=== PATIENT | female | born 1985 | race Caucasian/White ===

== ENCOUNTER 2016-06-23 12:47 | Inpatient (IN) | payer OTHER ==
[2016-06-25] MEDS ORDERED: LACTATED RINGER'S 1000 ML IV ONE (06:00)
[2016-06-25] MEDS ORDERED: ceFAZolin 2 GM PREMIX 50 ML IV SCH (06:00)
[2016-06-25] MEDS ORDERED: CITRIC ACID-SODIUM CITRATE LIQ 30 ML UDC PO SCH (06:00)
[2016-06-25] MEDS ORDERED: LACTATED RINGER'S 1000 ML IV SCH (06:00)
--- NOTE | 2016-06-25 08:14 | HHI.DCPOC ---
Discharge Care Plan Report Symptoms to Your Doctor -Temperate above 100.5 degrees -Redness, of incision or excessive or foul smelling drainage -Unusual pain or calf pain -Increased vaginal bleeding -Painful or difficulty urinating -Feelings of extreme sadness or anxiety after 2 weeks Goals to Promote Your Health * To prevent worsening of your condition and complications * To maintain your health at the optimal level Directions to Meet Your Goals Take your medications as prescribed Follow your dietary instruction Follow activity as directed Ensure plenty of rest for recovery Drink fluids for hydration Keep your appointments as scheduled Take your immunizations and boosters as scheduled If your symptoms worsen call your PCP, if no PCP go to Urgent Care Center or Emergency Room Smoking is Dangerous to Your Health. Avoid second hand smoke Call the 24-hour crisis hotline for domestic abuse at Ashly Eduardo MD Jun 25, 2016 08:14
== END 2016-06-25 08:04 | disposition home or self-care (01) | DRG 951 ==
LOC: H2EB 06-25 05:42 → UNDODISIN 06-25 08:04
PROVIDERS: ADMIT Obstetrics & Gynecology; ATTEND Obstetrics & Gynecology
DX: Z34.90 Encounter for supervision of normal pregnancy, unspecified, unspecified trimester (principal); Z53.8 Procedure and treatment not carried out for other reasons

== ENCOUNTER 2016-07-07 11:12 | Inpatient (IN) | payer OTHER ==
[2016-07-07] VITALS (71 sets, daily range): BP systolic 97–148; BP diastolic 57–97; PULSE 66–157; RESP 16–18; TEMP 97.5–98.6
--- NOTE | 2016-07-07 11:35 | HHI.DCPOC ---
Discharge Care Plan Diagnosis: (1) S/P primary low transverse Your Health Problems Are: delivery Report Symptoms to Your Doctor -Temperate above 100.5 degrees -Redness, of incision or excessive or foul smelling drainage -Unusual pain or calf pain -Increased vaginal bleeding -Painful or difficulty urinating -Feelings of extreme sadness or anxiety after 2 weeks Goals to Promote Your Health * To prevent worsening of your condition and complications * To maintain your health at the optimal level Directions to Meet Your Goals Take your medications as prescribed Follow your dietary instruction Follow activity as directed Ensure plenty of rest for recovery Drink fluids for hydration Keep your appointments as scheduled Take your immunizations and boosters as scheduled If your symptoms worsen call your PCP, if no PCP go to Urgent Care Center or Emergency Room Smoking is Dangerous to Your Health. Avoid second hand smoke Call the 24-hour crisis hotline for domestic abuse at Loly Dixon MD Jul 07, 2016 11:35
[2016-07-07 12:19] LABS: BACTERIA, URINE OCC /hpf; BLOOD, URINE MOD (NEG); COMMENT (UR) CULT NOT INDICATED; CULTURE IF INDICATED CULT NOT INDICATED; GLUCOSE,URINE NEG (NEG); KETONE, URINE NEG (NEG); MUCUS URINE FEW /lpf (OCC); NITRITE,URINE NEG (NEG); PH, URINE 5.5 (5.0-8.5); SQUAMOUS EPITHELIAL CELL URINE 11 /hpf (0-5); URINE COLOR YELLOW (YELLW/STRAW)
[2016-07-07] MEDS ORDERED: LACTATED RINGER'S 1000 ML INJ 1,000 ML IV PRN (12:52)
[2016-07-07] MEDS ORDERED: MINERAL OIL 10 ML VIAL TOPICAL PRN (13:00)
[2016-07-07] MEDS ORDERED: OXYTOCIN 30 UNITS-500ML PREMIX 500 ML IV ONE (13:00)
[2016-07-07] MEDS ORDERED: CITRIC ACID-SODIUM CITRATE LIQ 30 ML UDC PO SCH (13:00)
[2016-07-07] MEDS ORDERED: SODIUM CHLORID 0.9% 500 ML INJ 500 ML IV PRN (13:00)
[2016-07-07] MEDS ORDERED: OXYTOCIN 30 UNITS-500ML PREMIX 500 ML IV SCH (13:00)
[2016-07-07] MEDS ORDERED: LIDOCAINE HCL 1% 50 ML VIAL I-DERMAL PRN (13:00)
[2016-07-07] MEDS ORDERED: LIDOCAINE HCL 1% 50 ML VIAL INFIL PRN (13:00)
[2016-07-07 13:03] LABS: AUTOMATED NEUTROPHIL # 13.3 TH/MM3 (1.8-7.7); BASOPHIL % 0.3 % (0.0-2.0); EOSINOPHIL # 0.1 TH/MM3 (0-0.4); EOSINOPHIL % 0.5 % (0.0-4.0); HEMATOCRIT 37.8 % (35.0-46.0); HEMO FLAGS DIFF FINAL; LYMPH % 9.1 % (9.0-44.0); LYMPHOCYTE # 1.4 TH/MM3 (1.0-4.8); MEAN CELL VOLUME 94.1 FL (80.0-100.0); MEAN CORPUSCULAR HEMOGLOBIN 33.6 PG (27.0-34.0); MEAN CORPUSCULAR HGB CONC 35.6 % (32.0-36.0); MONO % 5.5 % (0.0-8.0); NEUT % 84.6 % (16.0-70.0); PLATELET COUNT 182 TH/MM3 (150-450); RED BLOOD COUNT 4.01 MIL/MM3 (4.00-5.30); RED CELL DISTRIBUTION WIDTH 12.9 % (11.6-17.2); WHITE BLOOD COUNT 15.7 TH/MM3 (4.0-11.0)
[2016-07-07] MEDS ORDERED: SODIUM CHLOR 0.9% 1000 ML INJ 1,000 ML IV PRN (13:12)
[2016-07-07] MEDS ORDERED: fentaNYL 2MCG-BUPIV 0.125% INJ 100 ML ONE (13:20)
[2016-07-07 13:26] LABS: ALT (GPT) 18 U/L (10-53); ANION GAP 10 MEQ/L (5-15); AST (GOT) 18 U/L (15-37); BICARBONATE 22.8 MEQ/L (21.0-32.0); BLOOD UREA NITROGEN 8 MG/DL (7-18); CHLORIDE 101 MEQ/L (98-107); GLOMERULAR FILTRATION RATE 103 ML/MIN (>89); POTASSIUM 3.9 MEQ/L (3.5-5.1); SODIUM (NA) 134 MEQ/L (136-145)
[2016-07-07 13:28] LABS: ALKALINE PHOSPHATASE 120 U/L (45-117); TOTAL BILIRUBIN ADULT 0.4 MG/DL (0.2-1.0)
--- NOTE | 2016-07-07 13:31 | PD.LABORPN ---
Subjective Subjective Arrived uncomffortable with UCs every 2-3 minutes bloody show post stripping no DELEON N V Objective Objective strip reactive /-1 arom clear EFW 7 1/2 pelvis clinically adequate Assessment/Plan Assessment and Plan 41 week primip in active labor pitocin if needed, epidural anticipate Ashly Eduardo MD Jul 07, 2016 13:31
[2016-07-07] MEDS: LACTATED RINGER'S 1000 ML INJ 1,000 ML IV SCH ×2 (15:11→22:11)
[2016-07-07] MEDS ORDERED: DO NOT ADMINISTER ANTICOAGULANTS XX PRN (16:00)
[2016-07-07] MEDS ORDERED: ePHEDrine/NS 50 MG/5 ML SYR IV PRN (16:00)
[2016-07-07] MEDS ORDERED: fentaNYL 2MCG-BUPIV 0.125% INJ 100 ML EPIDURAL SCH (16:00)
[2016-07-07] MEDS ORDERED: NO SYSTEM NARCOTICS XX PRN (16:00)
--- NOTE | 2016-07-07 20:34 | PD.OB.DELI ---
Anesthesia: Epidural Episiotomy: None Vaginal Delivery: Normal Presentation: Occiput anterior Nuchal Cord: x1 Delayed cord clamping (45 sec): Yes : Female One Minute : 9 Five Minute : 9 Weight: 7 Infant Care: Suctioned, Spontaneous crying, Responded to stimulation, Blow-by O2 delivered Placenta: Spontaneous delivery, 3 vessel cord Laceration: 1 deg Repair: Chromic running Ashly Eduardo MD Jul 07, 2016 20:34
[2016-07-07] MEDS ORDERED: BENZOCAINE 20% TOPICAL SPRAY 60 ML CAN TOPICAL PRN (20:45)
[2016-07-07] MEDS ORDERED: ACETAMINOPHEN 325 MG TAB PO PRN (20:45)
[2016-07-07] MEDS ORDERED: SODIUM CHLORIDE 0.9% FLUSH 5 ML FLUSH IV PRN (20:45)
[2016-07-07] MEDS ORDERED: ALUMINUM/MAGNESIUM/SIMETH 30 ML CUP PO PRN (20:45)
[2016-07-07] MEDS ORDERED: ONDANSETRON ODT 4 MG TAB PO PRN (20:45)
[2016-07-07] MEDS ORDERED: ZOLPIDEM TARTRATE 5 MG TAB PO PRN (21:00)
[2016-07-07] MEDS ORDERED: MEASLES, MUMPS, RUBELLA VACCINE 0.5 ML VIAL SQ ONE (21:00)
[2016-07-07] MEDS ORDERED: SODIUM CHLORIDE 0.9% FLUSH 5 ML FLUSH IV SCH (21:00)
[2016-07-07] MEDS ORDERED: DIPHTH/TETANUS/ACEL PERTUSSIS (BOOSTER) 0.5 ML VIAL/PFS IM ONE (21:00)
[2016-07-08 00:10] VITALS: BP 123/75; PULSE 87; RESP 18; TEMP 98.5; O2SAT 99
[2016-07-08] MEDS: WITCH HAZEL 50%/GLYCERIN 12.5% 40 PAD JAR TOPICAL PRN ×2 (00:14→14:30)
[2016-07-08] MEDS: DOCUSATE SODIUM 50 MG/SENNA 8.6 MG TAB PO PRN ×2 (00:15→11:21)
[2016-07-08] MEDS: IBUPROFEN 600 MG TAB PO PRN ×3 (05:10→17:07)
[2016-07-08 08:25] VITALS: BP 127/67; PULSE 76; RESP 18; TEMP 97.6
--- NOTE | 2016-07-08 08:34 | HHI.OB ---
Subjective Post Day: 1 Remarks doing well, some perineal soreness nl lochia Objective Vitals/I&O Vital Signs Date Time Temp Pulse Resp B/P Pulse Ox O2 Delivery O2 Flow Rate FiO2 07/08/16 00:10 98.5 87 18 123/75 99 07/07/16 23:00 98.1 16 07/07/16 22:46 86 133/64 07/07/16 22:12 18 07/07/16 22:00 95 18 125/67 07/07/16 21:45 93 126/69 07/07/16 21:35 16 07/07/16 21:30 16 07/07/16 21:30 98 146/83 07/07/16 21:16 97 105/78 07/07/16 21:15 16 07/07/16 21:01 95 130/74 07/07/16 21:00 18 07/07/16 20:45 98.1 07/07/16 20:45 18 07/07/16 20:45 89 139/80 07/07/16 20:44 90 141/80 07/07/16 19:45 18 07/07/16 19:30 78 136/83 07/07/16 19:15 18 07/07/16 19:00 79 133/79 07/07/16 18:43 18 07/07/16 18:31 69 118/64 07/07/16 18:05 72 116/61 07/07/16 18:04 16 07/07/16 17:30 70 110/88 07/07/16 17:24 98.6 18 07/07/16 17:15 18 07/07/16 17:01 78 97/78 07/07/16 16:31 66 137/81 07/07/16 16:14 77 18 124/76 07/07/16 16:10 71 07/07/16 16:05 76 07/07/16 16:01 70 118/61 07/07/16 16:00 77 07/07/16 15:42 67 141/78 07/07/16 15:40 72 07/07/16 15:39 18 07/07/16 15:35 70 07/07/16 15:31 76 139/68 07/07/16 15:30 72 07/07/16 15:25 70 07/07/16 15:20 70 2/6/17 15:15 97.5 18 07/07/16 15:15 69 07/07/16 15:10 72 07/07/16 15:07 69 130/71 07/07/16 15:05 72 07/07/16 15:01 81 126/76 07/07/16 15:00 75 07/07/16 14:45 18 07/07/16 14:41 67 137/72 07/07/16 14:40 68 07/07/16 14:35 77 07/07/16 14:35 86 134/84 07/07/16 14:32 82 117/70 07/07/16 14:30 76 07/07/16 14:26 77 120/93 07/07/16 14:25 77 07/07/16 14:21 101 110/60 07/07/16 14:20 74 07/07/16 14:17 71 114/57 07/07/16 14:15 76 07/07/16 14:11 72 129/70 07/07/16 14:10 74 07/07/16 14:06 74 135/75 07/07/16 14:05 76 07/07/16 14:01 85 143/71 07/07/16 14:00 81 07/07/16 13:55 148/76 07/07/16 13:55 81 07/07/16 13:51 87 129/88 07/07/16 13:50 80 07/07/16 13:45 75 120/87 07/07/16 13:41 157 113/97 07/07/16 13:40 80 07/07/16 13:35 88 07/07/16 13:30 86 129/89 Objective Remarks GENERAL: Well-nourished, well-developed patient. CARDIOVASCULAR: Regular rate and rhythm without murmurs, gallops, or rubs. RESPIRATORY: Breath sounds equal bilaterally. No accessory muscle use. ABDOMEN/GI: Abdomen soft, non-tender. Fundus: Firm, non-tender at umbilicus. GENITOURINARY: Light to moderate bleeding. EXTREMITIES: No cyanosis or edema, non-tender, without signs of DVT. Medications and IVs Current Medications Medications (Trade) Dose Ordered Sig/Mary Kay Route Start Time Stop Time Status Last Admin Lactated Ringer's 1,000 ml @ 125 mls/hr Q8H IV 07/07/16 12:52 07/07/16 22:11 Lactated Ringer's 1,000 ml @ 3,000 mls/hr Q20M PRN IV 07/07/16 12:52 (NS 1000 ml Inj) 1,000 ml @ 100 mls/hr Q10H PRN IV 07/07/16 13:12 (fentaNYL INJ) 50 mcg Q1H PRN IV PUSH 07/07/16 13:00 (fentaNYL INJ) 100 mcg Q1H PRN IV PUSH 07/07/16 13:00 Mineral Oil 10 ml 10 ml UNSCH PRN TOPICAL 07/07/16 13:00 (Pitocin 30 Units-NS 500 ml Premix) 500 ml @ 0 mls/hr TITRATE IV 07/07/16 13:00 07/07/16 15:10 Miscellaneous Information No systemic narcotics to be given except... UNSCH PRN XX 07/07/16 16:00 07/08/16 15:59 Miscellaneous Information DO NOT ADMINISTER ANY ANTICOAGUL... UNSCH PRN XX 07/07/16 16:00 07/08/16 15:59 (fentaNYL 2MCG-BUPIV 0.125% INJ) 100 ml @ 0 mls/hr TITRATE EPIDURAL 07/07/16 16:00 (ePHEDrine/NS 50 MG/5 ML SYR) 10 mg UNSCH PRN IV 07/07/16 16:00 07/08/16 15:59 (NS Flush) 2 ml BID IV 07/07/16 21:00 07/07/16 22:11 (NS Flush) 2 ml UNSCH PRN IV 07/07/16 20:45 (Tylenol) 650 mg Q4H PRN PO 07/07/16 20:45 (Motrin) 600 mg Q6H PRN PO 07/07/16 20:45 07/08/16 05:10 (Americaine 20% Top Spr) 1 spray Q4H PRN TOPICAL 07/07/16 20:45 07/08/16 00:15 (Tucks Pads) 1 applic QID PRN TOPICAL 07/07/16 20:45 07/08/16 00:14 (Ruchi-Colace) 2 tab Q12H PRN PO 07/07/16 20:45 07/08/16 00:15 (Ambien) 5 mg HS PRN PO 07/07/16 21:00 (Mag-Al Plus Susp Liq) 15 ml Q8H PRN PO 07/07/16 20:45 (Zofran Odt) 4 mg Q6H PRN PO 07/07/16 20:45 Assessment/Plan Problem List: (1) (spontaneous vaginal delivery) Assessment and Plan PPD 1 cont routine care Discharge Planning ppd2 Danii Pedroza MD Jul 08, 2016 08:34
[2016-07-08 19:40] VITALS: BP 127/77; PULSE 63; RESP 18; TEMP 98.6
[2016-07-09] MEDS: IBUPROFEN 600 MG TAB PO PRN ×2 (00:29→08:37)
--- NOTE | 2016-07-09 07:55 | HHI.OB ---
Subjective Post Day: 2 Remarks doing well nursing well ready for discharge Objective Vitals/I&O Vital Signs Date Time Temp Pulse Resp B/P Pulse Ox O2 Delivery O2 Flow Rate FiO2 07/08/16 19:40 98.6 07/08/16 19:40 63 18 127/77 07/08/16 08:25 97.6 07/08/16 08:25 76 18 127/67 Objective Remarks GENERAL: Well-nourished, well-developed patient. CARDIOVASCULAR: Regular rate and rhythm without murmurs, gallops, or rubs. RESPIRATORY: Breath sounds equal bilaterally. No accessory muscle use. ABDOMEN/GI: Abdomen soft, non-tender. Fundus: Firm, non-tender at umbilicus. GENITOURINARY: Light to moderate bleeding. EXTREMITIES: No cyanosis or edema, non-tender, without signs of DVT. Medications and IVs Current Medications Medications (Trade) Dose Ordered Sig/Mary Kay Route Start Time Stop Time Status Last Admin Lactated Ringer's 1,000 ml @ 125 mls/hr Q8H IV 07/07/16 12:52 07/07/16 22:11 Lactated Ringer's 1,000 ml @ 3,000 mls/hr Q20M PRN IV 07/07/16 12:52 (NS 1000 ml Inj) 1,000 ml @ 100 mls/hr Q10H PRN IV 07/07/16 13:12 (fentaNYL INJ) 50 mcg Q1H PRN IV PUSH 07/07/16 13:00 (fentaNYL INJ) 100 mcg Q1H PRN IV PUSH 07/07/16 13:00 Mineral Oil 10 ml 10 ml UNSCH PRN TOPICAL 07/07/16 13:00 Oxytocin 500 ml @ 0 mls/hr TITRATE IV 07/07/16 13:00 07/07/16 15:10 (fentaNYL 2MCG-BUPIV 0.125% INJ) 100 ml @ 0 mls/hr TITRATE EPIDURAL 07/07/16 16:00 (NS Flush) 2 ml BID IV 07/07/16 21:00 07/07/16 22:11 (NS Flush) 2 ml UNSCH PRN IV 07/07/16 20:45 (Tylenol) 650 mg Q4H PRN PO 07/07/16 20:45 (Motrin) 600 mg Q6H PRN PO 07/07/16 20:45 07/09/16 00:29 (Americaine 20% Top Spr) 1 spray Q4H PRN TOPICAL 07/07/16 20:45 07/08/16 00:15 (Tucks Pads) 1 applic QID PRN TOPICAL 07/07/16 20:45 07/08/16 14:30 (Ruchi-Colace) 2 tab Q12H PRN PO 07/07/16 20:45 07/08/16 11:21 (Ambien) 5 mg HS PRN PO 07/07/16 21:00 (Mag-Al Plus Susp Liq) 15 ml Q8H PRN PO 07/07/16 20:45 (Zofran Odt) 4 mg Q6H PRN PO 07/07/16 20:45 Assessment/Plan Problem List: (1) (spontaneous vaginal delivery) Assessment and Plan PPD 2 home today follow up in 6 weeks Discharge Planning ppd2 Ashly Eduardo MD Jul 09, 2016 07:55
[2016-07-09] MEDS ORDERED: IBUP-232 PO (07:56)
--- NOTE | 2016-07-09 07:57 | HHI.DCPOC ---
Discharge Care Plan Report Symptoms to Your Doctor -Temperate above 100.5 degrees -Redness, of incision or excessive or foul smelling drainage -Unusual pain or calf pain -Increased vaginal bleeding -Painful or difficulty urinating -Feelings of extreme sadness or anxiety after 2 weeks Goals to Promote Your Health * To prevent worsening of your condition and complications * To maintain your health at the optimal level Directions to Meet Your Goals Take your medications as prescribed Follow your dietary instruction Follow activity as directed Ensure plenty of rest for recovery Drink fluids for hydration Keep your appointments as scheduled Take your immunizations and boosters as scheduled If your symptoms worsen call your PCP, if no PCP go to Urgent Care Center or Emergency Room Smoking is Dangerous to Your Health. Avoid second hand smoke Call the 24-hour crisis hotline for domestic abuse at Ashly Eduardo MD Jul 09, 2016 07:56
[2016-07-09 08:35] VITALS: BP 135/78; PULSE 64; RESP 18; TEMP 97.4
[2016-07-09] MEDS: DOCUSATE SODIUM 50 MG/SENNA 8.6 MG TAB PO PRN (08:37)
== END 2016-07-09 12:24 | disposition home or self-care (01) | DRG 775 ==
LOC: EDSTATUS 11:17 → H2EB 11:18 → H1EA 23:18
PROVIDERS: ADMIT Obstetrics & Gynecology; ATTEND Obstetrics & Gynecology
PROC: 10E0XZZ Delivery of Products of Conception, External Approach (ICD-10-PCS; principal; 2016-07-07)
PROC: 0HQ9XZZ Repair Perineum Skin, External Approach (ICD-10-PCS; 2016-07-07)
PROC: 10907ZC Drainage of Amniotic Fluid, Therapeutic from Products of Conception, Via Natural or Artificial Opening (ICD-10-PCS; 2016-07-07)
PROC: 00HU33Z Insertion of Infusion Device into Spinal Canal, Percutaneous Approach (ICD-10-PCS; 2016-07-07)
PROC: 3E0R3CZ (ICD-10-PCS; 2016-07-07)
DX: O70.0 First degree perineal laceration during delivery (principal); O48.0 Post-term pregnancy; O69.81X0 Labor and delivery complicated by cord around neck, without compression, not applicable or unspecified; Z3A.41 41 weeks gestation of pregnancy; Z37.0 Single live birth
CPT/HCPCS: 59025; 76937; 80053; 81001; 85025; 86900; 86901; J2590; J7120

== ENCOUNTER → 2017-02-18 | Outpatient (CLI) | payer BC ==
[~2017-02-18] MED LIST: IBUP-232 PO
== END ==
LOC: HPND 11:53
PROVIDERS: ATTEND Obstetrics & Gynecology
DX: O28.5 Abnormal chromosomal and genetic finding on antenatal screening of mother (principal)
CPT/HCPCS: 36415; 76811

== ENCOUNTER → 2017-03-18 | Outpatient (CLI) | payer BC | LOC: HPND 12:04 | PROVIDERS: ATTEND Obstetrics & Gynecology | DX: O99.282 Endocrine, nutritional and metabolic diseases complicating pregnancy, second trimester (principal); O28.0 Abnormal hematological finding on antenatal screening of mother | CPT/HCPCS: 76816 ==

== ENCOUNTER 2017-07-02 11:03 | Inpatient (IN) | payer BC ==
[~2017-07-02] VITALS: Ht 157.5 cm; Wt 74.0 kg
[2017-07-02] VITALS (48 sets, daily range): BP systolic 96–146; BP diastolic 47–87; PULSE 61–87; RESP 16–20; TEMP 97.8–98.8
[2017-07-02] MEDS ORDERED: PREN1TAB45 PO (11:43)
[2017-07-02] MEDS ORDERED: SYNT112T PO (11:43)
[2017-07-02] MEDS ORDERED: LACTATED RINGER'S 1000 ML INJ 1,000 ML IV PRN (12:04)
[2017-07-02] MEDS ORDERED: MINERAL OIL 10 ML VIAL TOPICAL PRN (12:15)
[2017-07-02] MEDS ORDERED: SODIUM CHLORID 0.9% 500 ML INJ 500 ML IV PRN (12:15)
[2017-07-02] MEDS ORDERED: CITRIC ACID-SODIUM CITRATE LIQ 30 ML UDC PO SCH (12:15)
[2017-07-02] MEDS ORDERED: OXYTOCIN 30 UNITS-500ML PREMIX 500 ML IV PRN (12:15)
[2017-07-02] MEDS ORDERED: LIDOCAINE HCL 1% 50 ML VIAL I-DERMAL PRN (12:15)
[2017-07-02] MEDS ORDERED: LIDOCAINE HCL 1% 50 ML VIAL INFIL PRN (12:15)
[2017-07-02] MEDS ORDERED: OXYTOCIN 30 UNITS-500ML PREMIX 500 ML IV ONE (12:15)
[2017-07-02] MEDS ORDERED: ONDANSETRON HCL 4 MG/2 ML VIAL IV PUSH PRN (12:15)
--- NOTE | 2017-07-02 12:19 | HHI.HP ---
HPI Chief Complaint PROM at 38 5/7 weeks Date Seen: Jul 02, 2017 Time Seen: 12:13 Travel History International Travel<30 Days: No Contact w/Intl Traveler<30Days: No Known Affected Area: No History of Present Illness HPI 31 yo mwf at 38 5/7 by early dates to office this am with concern of SROM. Not leaking actively. Aggressive exam to see if leaking. Fern + Nitrazine + No gross fluid until she stood and then flooded her clothing. Infant vertex and applied but high. FHT reassuring. no BP issues, No gestational diabetes and no PTL. First half of care in [place]. Remaining care with [facility] Weeks Gestation: 39 Para: 1 : 2 History Past Medical History Medical History: Denies Significant Hx Obstetric History Obstetric History one term infant vaginally. Spontaneously turned on day of scheduled section for breech after failed version one week prior. Past Surgical History Surgical History: No Previous Surgery Family History Family History: Negative Social History Alcohol Use: No Tobacco Use: No Substance Abuse: No Allergies-Medications (Allergen,Severity, Reaction): Coded Allergies: No Known Allergies (Verified Allergy, Unknown, 07/02/17) Home Meds Reported Medications Vit,Calc76/Iron/Folic (Pnv 29-1 Tablet) 29 Mg Iron-1 Mg Tablet, 1 TAB PO DAILY 07/02/17 Levothyroxine (Synthroid) 112 Mcg Tab, 112 MCG PO DAILY for Thyroid, #30 TAB 0 Refills 07/02/17 Discontinued Scripts Ibuprofen (Ibuprofen) 600 Mg Tab, 600 MG PO Q6H Y for CRAMPING, #20 TAB Prov:Ashly Eduardo MD 07/09/16 Review of Systems General / Constitutional: No: Fever, Weight Gain, Chills, Other Physical Exam Narrative GENERAL: Well-nourished, well-developed patient. SKIN: Warm and dry. HEAD: Normocephalic and atraumatic. EYES: No scleral icterus. No injection or drainage. ENT: No nasal drainage noted. Mucous membranes pink. Airway patent. NECK: Supple, trachea midline. No JVD. CARDIOVASCULAR: Regular rate and rhythm without murmurs, gallops, or rubs. RESPIRATORY: Breath sounds equal bilaterally. No accessory muscle use. BREASTS: Bilateral exam showed no masses , no retractions, no nipple discharge. ABDOMEN/GI: Abdomen soft, non-tender, bowel sounds present, no rebound, no guarding term fundus 2+ /50%/-2 anterior and soft pelvis proven to 7 pounds clinically adequate pelvis GBS+ strip category one no contractions yet EXTREMITIES: No cyanosis or edema. BACK: Nontender without obvious deformity. No CVA tenderness. NEUROLOGICAL: Awake and alert. Motor and sensory grossly within normal limits. Five out of 5 muscle strength in all muscle groups. Normal speech. Caprini VTE Risk Assessment Caprini VTE Risk Assessment: No/Low Risk (score <= 1) Caprini Risk Assessment Model Point Value = 1 Point Value = 2 Point Value = 3 Point Value = 5 Age 41-60 Minor surgery BMI > 25 kg/m2 Swollen legs Varicose veins or History of unexplained or recurrent spontaneous Oral contraceptives or hormone replacement Sepsis (< 1 month) Serious lung disease, including pneumonia (< 1 month) Abnormal pulmonary function Acute myocardial infarction Congestive heart failure (< 1 month) History of inflammatory bowel disease Medical patient at bed rest Age 61-74 Arthroscopic surgery Major open surgery (> 45 min) Laparoscopic surgery (> 45 min) Malignancy Confined to bed (> 72 hours) Immobilizing plaster cast Central venous access Age >= 75 History of VTE Family history of VTE Factor V Leiden Prothrombin [id number] Lupus anticoagulant Anticardiolipin antibodies Elevated serum homocysteine Heparin-induced thrombocytopenia Other congenital or acquired thrombophilia Stroke (< 1 month) Elective arthroplasty Hip, pelvis, or leg fracture Acute spinal cord injury (< 1 month) Prophylaxis Regimen Total Risk Factor Score Risk Level Prophylaxis Regimen 0-1 Low Early ambulation 2 Moderate Order ONE of the following: *Sequential Compression Device (SCD) *Heparin 5000 units SQ BID 3-4 Higher Order ONE of the following medications: *Heparin 5000 units SQ TID *Enoxaparin/Lovenox 40 mg SQ daily (WT < 150 kg, CrCl > 30 mL/min) *Enoxaparin/Lovenox 30 mg SQ daily (WT < 150 kg, CrCl > 10-29 mL/min) *Enoxaparin/Lovenox 30 mg SQ BID (WT < 150 kg, CrCl > 30 mL/min) AND/OR *Sequential Compression Device (SCD) 5 or more Highest Order ONE of the following medications: *Heparin 5000 units SQ TID (Preferred with Epidurals) *Enoxaparin/Lovenox 40 mg SQ daily (WT < 150 kg, CrCl > 30 mL/min) *Enoxaparin/Lovenox 30 mg SQ daily (WT < 150 kg, CrCl > 10-29 mL/min) *Enoxaparin/Lovenox 30 mg SQ BID (WT < 150 kg, CrCl > 30 mL/min) AND *Sequential Compression Device (SCD) Data Data Orders Orders Admit To Inpatient (07/02/17 ) Code Status (07/02/17 12:04) Vital Signs (Adult) .Per protocol (07/02/17 12:04) Activity Oob Ad Pratibha (07/02/17 12:04) Heart (07/02/17 12:04) Amnioinfusion (07/02/17 12:04) Urinary Catheter Management .ONCE (07/02/17 12:04) Lactated Ringer's 1000 Ml Inj (Lr 1000 M (07/02/17 12:04) Lactated Ringer's 1000 Ml Inj (Lr 1000 M (07/02/17 12:04) Sodium Chlorid 0.9% 500 Ml Inj (Ns 500 M (07/02/17 12:15) Sodium Chlor 0.9% 1000 Ml Inj (Ns 1000 M (07/02/17 12:24) Lidocaine 1% Inj (50 Ml) (Xylocaine 1% I (07/02/17 12:15) Citric Acid-Sodium Citrate Liq (Bicitra (07/02/17 12:15) Ondansetron Inj (Zofran Inj) (07/02/17 12:15) Fentanyl Inj (Fentanyl Inj) (07/02/17 12:15) Fentanyl Inj (Fentanyl Inj) (07/02/17 12:15) Penicillin G Potassium Inj (Pfizerpen-G (07/02/17 12:15) Penicillin G Potassium Inj (Pfizerpen-G (07/02/17 16:15) Complete Blood Count With Diff (07/02/17 12:04) Hold Clot (07/02/17 12:04) Abo/Rh Blood Type (07/02/17 12:04) Urinalysis - C+S If Indicated (07/02/17 12:04) Drug Screen, Random Urine (07/02/17 12:04) Resp Oxygen Non Rebreathe Mask (07/02/17 ) ^ Epidural / Intrathecal Infus (07/02/17 12:04) Oxytocin 30 Units-500ml Premix (Pitocin (07/02/17 12:15) Lidocaine 1% Inj (50 Ml) (Xylocaine 1% I (07/02/17 12:15) Light Mineral Oil (Muri-Lube Oil) (07/02/17 12:15) ^ Non Stress Test (07/02/17 12:04) Response To Medication .Post New Med Administration, Reaction (07/02/17 12:04) ^ Discontinue Medication (07/02/17 12:04) Oxytocin 30 Units-500ml Premix (Pitocin (07/02/17 12:15) Inpatient Certification (07/02/17 ) Specimen To Be Collected PRN (07/02/17 12:04) Specimen To Be Collected PRN (07/02/17 12:04) Diet Regular Basic (07/02/17 Lunch) Assessment/Plan Problem List: (1) GBS (group B Streptococcus carrier), +RV culture, currently ICD Codes: O99.820 - Streptococcus B carrier state complicating (2) PROM (premature rupture of membranes) ICD Codes: O42.90 - Premature rupture of membranes, unspecified as to length of time between rupture and onset of labor, unspecified weeks of gestation (3) Term ICD Codes: Z34.80 - Encounter for supervision of other normal , unspecified trimester Assessment and Plan penicillin G prophylaxis pitocin per protocol epidural when desires anticipate Ashly Moseley MD Jul 02, 2017 12:19
[2017-07-02 12:22] LABS: BASOPHIL % 0.4 % (0.0-2.0); EOSINOPHIL # 0.1 TH/MM3 (0-0.4); EOSINOPHIL % 1.6 % (0.0-4.0); HEMATOCRIT 36.8 % (35.0-46.0); HEMOGLOBIN 13.2 GM/DL (11.6-15.3); LYMPH % 24.2 % (9.0-44.0); LYMPHOCYTE # 2.2 TH/MM3 (1.0-4.8); MEAN CELL VOLUME 94.4 FL (80.0-100.0); MEAN CORPUSCULAR HEMOGLOBIN 33.9 PG (27.0-34.0); MEAN CORPUSCULAR HGB CONC 35.9 % (32.0-36.0); MEAN PLATELET VOLUME 8.4 FL (7.0-11.0); MONOCYTE # 0.7 TH/MM3 (0-0.9); NEUT % 65.8 % (16.0-70.0); PLATELET COUNT 237 TH/MM3 (150-450); RED CELL DISTRIBUTION WIDTH 12.5 % (11.6-17.2); WHITE BLOOD COUNT 9.2 TH/MM3 (4.0-11.0)
[2017-07-02 12:24] LABS: BACTERIA, URINE OCC /hpf; BILIRUBIN, URINE NEG (NEG); BLOOD, URINE MOD (NEG); GLUCOSE,URINE NEG (NEG); KETONE, URINE NEG (NEG); MUCUS URINE FEW /lpf (OCC); NITRITE,URINE NEG (NEG); SQUAMOUS EPITHELIAL CELL URINE 14 /hpf (0-5); URINE COLOR LIGHT-YELLOW (YELLW/STRAW); URINE LEUKOCYTE ESTERASE TRACE (NEG)
[2017-07-02] MEDS ORDERED: SODIUM CHLOR 0.9% 1000 ML INJ 1,000 ML IV PRN (12:24)
[2017-07-02] MEDS ORDERED: PENICILLIN G POTASSIUM INJ 5,000,000 UNITS in SODIUM CHLORIDE 0.9% INJ 100 ML IV ONE (13:00)
[2017-07-02] MEDS: LACTATED RINGER'S 1000 ML INJ 1,000 ML IV SCH ×2 (14:38→17:05)
[2017-07-02] MEDS ORDERED: fentaNYL 2MCG-BUPIV 0.125% INJ 100 ML ONE (15:11)
[2017-07-02] MEDS ORDERED: DIPHTH/TETANUS/ACEL PERTUSSIS (BOOSTER) 0.5 ML VIAL/PFS IM ONE (16:00)
[2017-07-02] MEDS ORDERED: MEASLES, MUMPS, RUBELLA VACCINE 0.5 ML VIAL SQ ONE (16:00)
[2017-07-02] MEDS ORDERED: PENICILLIN G POTASSIUM INJ 2,500,000 UNITS in SODIUM CHLORIDE 0.9% INJ 100 ML IV SCH (17:00)
--- NOTE | 2017-07-02 17:21 | PD.LABORPN ---
Subjective Subjective comfortable with epidural Objective Vital Signs Vital Signs Date Time Temp Pulse Resp B/P (MAP) Pulse Ox O2 Delivery O2 Flow Rate FiO2 07/02/17 16:45 77 07/02/17 16:40 75 07/02/17 16:35 73 07/02/17 16:31 76 120/61 (80) 07/02/17 16:30 78 07/02/17 16:25 80 07/02/17 16:20 80 122/64 (83) 07/02/17 16:16 79 117/66 (83) 07/02/17 16:15 87 07/02/17 16:10 122/66 (84) 07/02/17 16:10 75 07/02/17 16:07 121/55 (77) 07/02/17 16:07 78 07/02/17 16:05 79 07/02/17 16:01 80 119/61 (80) 07/02/17 16:00 98.1 07/02/17 16:00 18 07/02/17 16:00 83 07/02/17 15:56 86 130/68 (88) 07/02/17 15:50 77 132/72 (92) 07/02/17 15:47 83 124/55 (78) 07/02/17 15:07 98.1 20 07/02/17 15:06 68 115/63 (80) 07/02/17 14:34 83 96/47 (63) 07/02/17 14:08 81 105/53 (70) 07/02/17 14:00 98.8 07/02/17 13:34 75 18 119/64 (82) Objective 5 cm/70%/-1m anterior soft and OA strip reactive category 1 Weeks Gestation: 39 Gest Age Assessed Date: Jul 02, 2017 Gest Age Assessed Time: 17:20 Pt started active labor?: Yes Active labor start date: Jul 02, 2017 Active labor start time: 10:00 Medical induction of labor?: No Artificial rupture of membrane: No Assessment/Plan Problem List: (1) GBS (group B Streptococcus carrier), +RV culture, currently ICD Codes: O99.820 - Streptococcus B carrier state complicating (2) PROM (premature rupture of membranes) ICD Codes: O42.90 - Premature rupture of membranes, unspecified as to length of time between rupture and onset of labor, unspecified weeks of gestation (3) Term ICD Codes: Z34.80 - Encounter for supervision of other normal , unspecified trimester Assessment and Plan anticipate Ashly Moseley MD Jul 02, 2017 17:21
[2017-07-02] MEDS ORDERED: fentaNYL 2MCG-BUPIV 0.125% 100 ML EPIDURAL SCH (18:30)
[2017-07-02] MEDS ORDERED: DO NOT ADMINISTER ANTICOAGULANTS PRN (18:30)
[2017-07-02] MEDS ORDERED: NO SYSTEM NARCOTICS PRN (18:30)
[2017-07-02] MEDS ORDERED: ePHEDrine/NS 25 MG/5 ML SYRINGE IV PUSH PRN (18:30)
--- NOTE | 2017-07-02 20:27 | PD.OB.DELI ---
Weeks gestation: 39 Gest age assessed date: Jul 02, 2017 Gest age assessed time: 17:20 Pt started active labor?: Yes Active labor start date: Jul 02, 2017 Active labor start time: 10:00 Medical induction of labor?: No Artificial rupture of membrane: No Anesthesia: Epidural Episiotomy: None Vaginal Delivery: Normal Presentation: Occiput anterior Nuchal Cord: None Delayed cord clamping (45 sec): Yes Infant: Female Delivery date: Jul 02, 2017 Delivery time: 20:27 One Minute : 9 Five Minute : 9 Weight: 6 7 Placenta: Spontaneous delivery Laceration: 1 deg Repair: Chromic interrupted Estimated blood loss: 200 Ashly Eduardo MD Jul 02, 2017 20:27
[2017-07-02] MEDS ORDERED: ONDANSETRON ODT 4 MG TAB PO PRN (20:30)
[2017-07-02] MEDS ORDERED: OXYTOCIN 30 UNITS-500ML PREMIX 500 ML IV SCH (20:30)
[2017-07-02] MEDS ORDERED: WITCH HAZEL 50%/GLYCERIN 12.5% 40 PAD JAR TOPICAL PRN (20:30)
[2017-07-02] MEDS ORDERED: BENZOCAINE 20% TOPICAL SPRAY 60 ML CAN TOPICAL PRN (20:30)
[2017-07-02] MEDS ORDERED: SODIUM CHLORIDE 0.9% FLUSH 10 ML FLUSH IV FLUSH PRN (20:30)
[2017-07-02] MEDS ORDERED: ZOLPIDEM TARTRATE 5 MG TAB PO PRN (20:30)
[2017-07-02] MEDS ORDERED: DOCUSATE SODIUM 50 MG/SENNA 8.6 MG TAB PO PRN (20:30)
[2017-07-02] MEDS ORDERED: ACETAMINOPHEN 325 MG TAB PO PRN (20:30)
[2017-07-02] MEDS ORDERED: ALUMINUM/MAGNESIUM/SIMETH 30 ML CUP PO PRN (20:30)
[2017-07-02] MEDS ORDERED: SODIUM CHLORIDE 0.9% FLUSH 10 ML FLUSH IV FLUSH SCH (21:00)
[2017-07-02] MEDS: IBUPROFEN 800 MG TAB PO PRN (21:45)
[2017-07-02] MEDS ORDERED: diphenhydrAMINE HCL 50 MG CAP PO PRN (23:30)
[2017-07-03] MEDS: LEVOTHYROXINE SODIUM 112 MCG TAB PO SCH (06:45)
[2017-07-03] MEDS: IBUPROFEN 800 MG TAB PO PRN ×3 (06:45→23:38)
[2017-07-03 08:00] VITALS: BP 116/75; PULSE 66; RESP 18; TEMP 97.7; O2SAT 98
--- NOTE | 2017-07-03 14:40 | HHI.OB ---
Subjective Post Day: 1 Remarks s/p FT healthy female infant Objective Vitals/I&O Vital Signs Date Time Temp Pulse Resp B/P (MAP) Pulse Ox O2 Delivery O2 Flow Rate FiO2 07/03/17 08:00 97.7 66 18 98 07/03/17 08:00 116/75 (89) 07/02/17 23:15 98.2 68 18 125/72 (89) 07/02/17 21:16 83 137/84 (101) 07/02/17 21:01 68 146/87 (106) 07/02/17 21:00 18 07/02/17 20:46 69 141/78 (99) 07/02/17 20:44 97.8 18 07/02/17 20:30 71 18 142/84 (103) 07/02/17 20:17 76 138/79 (98) 07/02/17 20:03 18 07/02/17 20:01 65 127/75 (92) 07/02/17 19:31 61 116/67 (83) 07/02/17 19:23 98.7 18 07/02/17 19:00 69 114/80 (91) 07/02/17 18:59 16 07/02/17 18:30 62 135/77 (96) 07/02/17 18:00 73 114/61 (78) 07/02/17 17:45 70 119/62 (81) 07/02/17 17:40 98.4 18 07/02/17 17:31 71 113/74 (87) 07/02/17 17:15 71 124/65 (84) 07/02/17 17:15 61 07/02/17 17:05 68 07/02/17 17:01 73 130/63 (85) 07/02/17 17:00 77 16 07/02/17 16:55 75 07/02/17 16:50 77 07/02/17 16:46 78 129/73 (91) 07/02/17 16:45 77 07/02/17 16:40 75 07/02/17 16:35 73 07/02/17 16:31 76 120/61 (80) 07/02/17 16:30 78 07/02/17 16:25 80 07/02/17 16:20 80 122/64 (83) 07/02/17 16:16 79 117/66 (83) 07/02/17 16:15 87 07/02/17 16:10 122/66 (84) 07/02/17 16:10 75 07/02/17 16:07 121/55 (77) 07/02/17 16:07 78 07/02/17 16:05 79 07/02/17 16:01 80 119/61 (80) 07/02/17 16:00 98.1 07/02/17 16:00 18 07/02/17 16:00 83 07/02/17 15:56 86 130/68 (88) 07/02/17 15:50 77 132/72 (92) 07/02/17 15:47 83 124/55 (78) 07/02/17 15:07 98.1 20 07/02/17 15:06 68 115/63 (80) Objective Remarks GENERAL: Well-nourished, well-developed patient. Sitting up in bed, . CARDIOVASCULAR: Regular rate and rhythm without murmurs, gallops, or rubs. RESPIRATORY: Breath sounds equal bilaterally. No accessory muscle use. ABDOMEN/GI: Abdomen soft, non-tender. Fundus: Firm, non-tender at umbilicus. GENITOURINARY: Light to moderate bleeding. EXTREMITIES: No cyanosis or edema, non-tender, without signs of DVT. Medications and IVs Current Medications Medications (Trade) Dose Ordered Sig/Mary Kay Route Start Time Stop Time Status Last Admin Miscellaneous Information No systemic narcotics to be given except... UNSCH PRN .XX 07/02/17 18:30 07/03/17 18:29 Miscellaneous Information DO NOT ADMINISTER ANY ANTICOAGUL... UNSCH PRN .XX 07/02/17 18:30 07/03/17 18:29 Fentanyl/ Bupivacaine HCl 100 ml @ 0 mls/hr TITRATE EPIDURAL 07/02/17 18:30 07/02/17 18:59 (ePHEDrine/NS 25 MG/5 ML SYR) 10 mg UNSCH PRN IV PUSH 07/02/17 18:30 07/03/17 18:29 (NS Flush) 2 ml BID IV FLUSH 07/02/17 21:00 07/02/17 21:45 (NS Flush) 2 ml UNSCH PRN IV FLUSH 07/02/17 20:30 (Tylenol) 650 mg Q4H PRN PO 07/02/17 20:30 (Motrin) 800 mg Q8H PRN PO 07/02/17 20:30 07/03/17 14:33 (Americaine 20% Top Spr) 1 spray Q4H PRN TOPICAL 07/02/17 20:30 07/03/17 14:34 (Tucks Pads) 1 applic QID PRN TOPICAL 07/02/17 20:30 07/03/17 14:33 (Ruchi-Colace) 2 tab Q12H PRN PO 07/02/17 20:30 (Ambien) 5 mg HS PRN PO 07/02/17 20:30 (Mag-Al Plus Susp Liq) 15 ml Q8H PRN PO 07/02/17 20:30 (Zofran Odt) 4 mg Q6H PRN PO 07/02/17 20:30 (Synthroid) 112 mcg DAILY@0700 PO 07/03/17 07:00 07/03/17 06:45 (Benadryl) 50 mg Q6H PRN PO 07/02/17 23:30 07/03/17 00:22 Assessment/Plan Problem List: (1) (spontaneous vaginal delivery) ICD Codes: O80 - Encounter for full-term uncomplicated delivery Status: Acute Assessment and Plan PPD#1 routine supportive care anticipate d/c to home tmrw Discharge Planning routine Loly Dixon MD Jul 03, 2017 14:40
[2017-07-03 20:16] VITALS: BP 134/76; PULSE 59; RESP 18; TEMP 98.1; O2SAT 99
[2017-07-04] MEDS: LEVOTHYROXINE SODIUM 112 MCG TAB PO SCH (06:36)
[2017-07-04 08:00] VITALS: BP 140/78; PULSE 69; RESP 18; TEMP 97.9; O2SAT 98
--- NOTE | 2017-07-04 09:36 | HHI.OB ---
Subjective Post Day: 2 Objective Vitals/I&O Vital Signs Date Time Temp Pulse Resp B/P (MAP) Pulse Ox O2 Delivery O2 Flow Rate FiO2 07/04/17 08:00 97.9 69 18 140/78 (98) 98 07/03/17 20:16 98.1 59 18 134/76 (95) 99 Objective Remarks GENERAL: Well-nourished, well-developed patient. Sitting up in bed, . CARDIOVASCULAR: Regular rate and rhythm without murmurs, gallops, or rubs. RESPIRATORY: Breath sounds equal bilaterally. No accessory muscle use. ABDOMEN/GI: Abdomen soft, non-tender. Fundus: Firm, non-tender at umbilicus. GENITOURINARY: Light to moderate bleeding. EXTREMITIES: No cyanosis or edema, non-tender, without signs of DVT. Medications and IVs Current Medications Medications (Trade) Dose Ordered Sig/Mary Kay Route Start Time Stop Time Status Last Admin Fentanyl/ Bupivacaine HCl 100 ml @ 0 mls/hr TITRATE EPIDURAL 07/02/17 18:30 07/02/17 18:59 (NS Flush) 2 ml BID IV FLUSH 07/02/17 21:00 07/02/17 21:45 (NS Flush) 2 ml UNSCH PRN IV FLUSH 07/02/17 20:30 (Tylenol) 650 mg Q4H PRN PO 07/02/17 20:30 07/03/17 14:44 (Motrin) 800 mg Q8H PRN PO 07/02/17 20:30 07/03/17 23:38 (Americaine 20% Top Spr) 1 spray Q4H PRN TOPICAL 07/02/17 20:30 07/03/17 14:34 (Tucks Pads) 1 applic QID PRN TOPICAL 07/02/17 20:30 07/03/17 14:33 (Ruchi-Colace) 2 tab Q12H PRN PO 07/02/17 20:30 (Ambien) 5 mg HS PRN PO 07/02/17 20:30 (Mag-Al Plus Susp Liq) 15 ml Q8H PRN PO 07/02/17 20:30 (Zofran Odt) 4 mg Q6H PRN PO 07/02/17 20:30 (Synthroid) 112 mcg DAILY@0700 PO 07/03/17 07:00 2/18 06:36 (Benadryl) 50 mg Q6H PRN PO 07/02/17 23:30 07/03/17 00:22 Assessment/Plan Problem List: (1) (spontaneous vaginal delivery) ICD Codes: O80 - Encounter for full-term uncomplicated delivery Status: Acute Assessment and Plan PPD#2 routine supportive care d/c to home today Discharge Planning routine Loly Dixon MD Jul 04, 2017 09:36
--- NOTE | 2017-07-04 09:37 | HHI.DCPOC ---
Discharge Care Plan Diagnosis: (1) (spontaneous vaginal delivery) Your Health Problems Are: Vaginal delivery Report Symptoms to Your Doctor -Temperature above 100.5 degrees -Redness, of incision or excessive or foul smelling drainage -Unusual pain or calf pain -Increased vaginal bleeding -Painful or difficulty urinating -Feelings of extreme sadness or anxiety after 2 weeks Goals to Promote Your Health * To prevent worsening of your condition and complications * To maintain your health at the optimal level Directions to Meet Your Goals Take your medications as prescribed Follow your dietary instruction Follow activity as directed Ensure plenty of rest for recovery Drink fluids for hydration Keep your appointments as scheduled Take your immunizations and boosters as scheduled If your symptoms worsen call your PCP, if no PCP go to Urgent Care Center or Emergency Room Smoking is Dangerous to Your Health. Avoid second hand smoke Call the 24-hour crisis hotline for domestic abuse at Loly Dixon MD Jul 04, 2017 09:37
[2017-07-04] MEDS ORDERED: IBUP1TAB7 PO (09:38)
[2017-07-04] MEDS: IBUPROFEN 800 MG TAB PO PRN (11:20)
== END 2017-07-04 12:57 | disposition home or self-care (01) | DRG 775 ==
LOC: H2EA 11:03 → H1EA 22:49
PROVIDERS: ADMIT Obstetrics & Gynecology; ATTEND Obstetrics & Gynecology
PROC: 10E0XZZ Delivery of Products of Conception, External Approach (ICD-10-PCS; principal; 2017-07-02)
PROC: 0HQ9XZZ Repair Perineum Skin, External Approach (ICD-10-PCS; 2017-07-02)
PROC: 3E0R3BZ Introduction of Anesthetic Agent into Spinal Canal, Percutaneous Approach (ICD-10-PCS; 2017-07-02)
PROC: 00HU33Z Insertion of Infusion Device into Spinal Canal, Percutaneous Approach (ICD-10-PCS; 2017-07-02)
DX: O42.92 Full-term premature rupture of membranes, unspecified as to length of time between rupture and onset of labor (principal); O99.283 Endocrine, nutritional and metabolic diseases complicating pregnancy, third trimester; E07.9 Disorder of thyroid, unspecified; O99.820 Streptococcus B carrier state complicating pregnancy; O70.0 First degree perineal laceration during delivery; Z37.0 Single live birth; Z3A.38 38 weeks gestation of pregnancy
CPT/HCPCS: 59025; 80307; 81001; 85025; 86900; 86901; J2540; J2590; J7120; Q0163